=== PATIENT | female | born 1975 | race Caucasian/White ===

== ENCOUNTER 2017-11-01 08:09 | Inpatient (IN) ==
--- NOTE | 2017-11-01 09:56 | HP ---
Chief Complaint - Chief Complaint Date of Service: 11/01/17 Time of Service: 09:48 Chief Complaint: Periumbilical pain History of Present Illness: Pt was transferred from [place] to our ER due to a lack of surgical services. She had the onset of periumbilical abdominal pain 2 days ago associated with nausea and vomiting. A plain AXR showed some minor air fluid levels. A CT of the abdomen showed a partial small bowel obstruction with air and stool throughout the colon. Thickening of the terminal ileum was noted as suspicious for Crohns. An NG tube was placed. She was given 1 gm of IV flagyl. Her WBC is normal. Her serum glucose is high. - Patient's Past Medical History Patient History - Medical: Other Patient History - Cardiac/Respiratory: No pertinent hx Patient History - Cancer: No Hx of Cancer Patient History - Surgical Procedures: D & C, Tubal Ligation, Other - Laparoscopic ablation of endometriosis Patient History - Other: None LMP (females 10-50): 3-26 - Family History Family History:: no untoward family reactions to anesthesia - No family history of crohns. Her mother was borderline T2 DM due to weight. - Social History Living Situations: home Psych History: No pertinent hx Smoking Status: Never smoker Alcohol Use: occasionally Drug Use: none - Immunizations Immunizations Up to Date: Yes Hx Pneumococcal Vaccination: No History of Influenza Vaccine: No Review Of Systems (GEN) - Review of Systems Abdominal: Present: Other - See HPI Misc: All systems neg except as marked Immunizations: IMMUNIZATION HX Immunizations Up to Date Yes History of Influenza Vaccine No Hx Pneumococcal Vaccination No Allergies/Adverse Reactions: Allergies Allergy/AdvReac Type Severity Reaction Status Date / Time No Known Allergies Allergy Verified 11/01/17 08:24 Home Medications: HOME MEDICATIONS NK [No Home Medication] 11/01/17 [Last Taken Unknown] Exam - Exam Vital Signs: Vital Signs - Last Taken Temp 37.1 C 11/01/17 08:13 Pulse 84 11/01/17 08:55 Resp 15 11/01/17 08:55 BP 92/56 11/01/17 08:55 Pulse Ox 99 11/01/17 08:55 Constitutional: Present: Alert, Oriented x3, Cooperative, Well developed, Well nourished, No distress ENT Exam: Present: normal ENT inspection, other - NG right nares. AXR shows tip in the stomach. Eye Exam: bilateral eye: normal inspection Neck: Present: full range of motion, supple, trachea midline Respiratory: Present: normal breath sounds, no respiratory distress, no accessory muscle use Cardiovascular/Chest: Present: regular rate, rhythm, no murmur Abdomen: Present: Normal bowel sounds, soft, tender - mildly tender throughout without peritoneal signs Skin Exam: Present: normal color, warm/dry Neurologic: Present: no motor/sensory deficits Appearance: Present: appropriate appearance, appropriate insight Eye contact: Present: cooperative, good eye contact Thoughts: Present: normal thought pattern Assessment/Plan - Narrative Narrative: A: Mild PSBO. Suspicion of Crohns Disease. Hyperglycemia P: Gut rest. Hydration. Luminal suppression with Cipro/Flagyl. Check CRP. Hospitalist consult for hyperglycemia. - Assessment/Plan (1) Partial small bowel obstruction Problem: Acute
[2017-11-01] MEDS ORDERED: metroNIDAZOLE/SODIUM CHLORIDE 500 MG/100 ML BAG IV SCH (10:30)
[2017-11-01] MEDS: RINGER'S SOLUTION,LACTATED 1,000 ML IV PRN ×2 (10:45→18:47)
[2017-11-01] MEDS: CIPROFLOXACIN IN 5 % DEXTROSE 400 MG/200 ML BAG IV SCH ×2 (11:29→22:18)
[2017-11-01] MEDS ORDERED: BENZOCAINE/MENTHOL 16 EACH BOX MM PRN (11:31)
[2017-11-01] MEDS ORDERED: PHENOL 180 SPRAY BTL MM PRN (11:33)
[2017-11-01] MEDS: ONDANSETRON HCL/PF 2 MG/ML VIAL IV PRN ×2 (13:04→17:32)
[2017-11-01] MEDS: metroNIDAZOLE/SODIUM CHLORIDE 500 MG/100 ML BAG IV SCH ×2 (13:11→20:11)
[2017-11-01] MEDS: KETOROLAC TROMETHAMINE 30 MG/ML VIAL IV PRN ×2 (13:44→20:09)
--- NOTE | 2017-11-01 16:18 | CONS ---
- Reason for consultation (1) Hyperglycemia Date of Service: 11/01/17 HPI - General Date of Service: 11/01/17 Narrative: Luna is a 42 yo female with unremarkable PMH who presented to the [place] ER today and was diagnosed with small bowel obstruction. They were unequipped with a surgeon and thus transferred her to [facility] for treatment. She was given an NG tube on suction and is NPO for treatment of her small bowel obstruction. In the [place] ER she had a blood sugar of 180. She denies a history of diabetes, gestational diabetes, or a family history of diabetes. She reports she eats a healthy, well balanced diet. She does not overdue carbs. She takes no medications. She reports the last meal she ate was two days ago. In her usual health she is asymptomatic and specifically denies polydipsia, polyuria, and fatigue. Source: patient Exam Limitations: no limitations - History of Present Illness Allergies/Adverse Reactions: Allergies No Known Allergies Allergy (Verified 11/01/17 10:44) Home Medications: Home Medications Medication Instructions Recorded Last Taken NK [No Home Medication] 11/01/17 Unknown - Patient's Past Medical History Patient History - Medical: Other - Currently admitted with small bowel obstruction Patient History - Cardiac/Respiratory: No pertinent hx Patient History - Cancer: No Hx of Cancer Patient History - Surgical Procedures: D & C, Tubal Ligation, Other - Laparoscopic ablation of endometriosis Patient History - Other: None LMP (females 10-50): 3-26 - Family History Family History:: no untoward family reactions to anesthesia - No family history of crohns. Her mother was borderline T2 DM due to weight. - Family History Mother Family History - Cardiac/Respiratory: No pertinent hx Family History - Cancer: No pertinent family hx Father Family History - Medical: No pertinent hx Family History - Cardiac/Respiratory: Myocardial Infarction, Other Family History - Cancer: No pertinent family hx Sister Family History - Medical: No pertinent hx Family History - Cardiac/Respiratory: No pertinent hx Family History - Cancer: No pertinent family hx - Social History Living Situations: home Psych History: No pertinent hx Smoking Status: Never smoker Have you smoked in the past 12 months: No Alcohol Use: occasionally Drug Use: none - Immunizations Immunizations Up to Date: Yes Hx Pneumococcal Vaccination: No History of Influenza Vaccine: No Procedures D & C NEC (01/01/14) DESTRUCT PERITONEAL TISS (01/01/14) DIGITAL RECTAL EXAM (01/01/14) HYSTEROSCOPY (01/01/14) LAPAROSCOP LYSIS-ADHES OVA,FALLOP TUBE (01/01/14) LAPAROSCOPY (01/01/14) OTH LAPAROSCOP LOCAL EXCIS/DESTRUCT OVARY (01/01/14) REMOVE BOTH FALLOP TUBES (01/01/14) Medications - Medications Current Medications: Current Medications Lactated Ringer's (Lactated Ringers) 1,000 mls @ 125 mls/hr IV .Q8H PRN PRN Reason: HYDRATION Stop: 12/01/17 09:44 Last Admin: 11/01/17 10:45 Dose: 125 mls/hr Ciprofloxacin/Dextrose (Cipro) 400 mg in 200 mls @ 200 mls/hr IV Q12H ESTHER PRN Reason: Protocol Stop: 12/01/17 10:31 Last Infusion: 11/01/17 12:29 Dose: Infused Metronidazole (Flagyl) 500 mg in 100 mls @ 100 mls/hr IV Q8H ESTHER PRN Reason: Protocol Stop: 12/01/17 11:31 Last Infusion: 11/01/17 14:11 Dose: Infused Ketorolac Tromethamine (Toradol) 30 mg IV Q6H PRN PRN Reason: Moderate Pain (pain scale 4-6) Stop: 11/06/17 13:30 Last Admin: 11/01/17 13:44 Dose: 30 mg Ondansetron HCl (Zofran) 4 mg IV Q4H PRN PRN Reason: Nausea Stop: 12/01/17 12:57 Last Admin: 11/01/17 13:04 Dose: 4 mg Phenol/Menthol (Chloraseptic) 1 spray MM Q2H PRN PRN Reason: Sore Throat Stop: 12/01/17 11:34 Last Admin: 11/01/17 11:48 Dose: 1 spray Review of Systems - Review of Systems Generalized/Overall Review: Present: No Symptoms Reported EENTM: Present: No Symptoms Reported Respiratory: Present: No Symptoms Reported Cardiac: Present: No Symptoms Reported Abdominal: Present: Nausea, Abdominal Pain Genitourinary: Present: No Symptoms Reported Musculoskeletal: Present: No Symptoms Reported Neurological: Present: No Symptoms Reported Skin: Present: No Symptoms Reported Endocrine: Present: No Symptoms Reported Physical Examination - Exam Vital Signs: Vital Signs - Last Taken Temp 36.7 C 11/01/17 14:45 Pulse 72 11/01/17 14:45 Resp 18 11/01/17 14:45 BP 95/54 11/01/17 14:45 Pulse Ox 96 11/01/17 14:45 O2 Oxygen Delivery Method Room Air Constitutional: Present: Alert, Oriented x3, Cooperative ENT Exam: Present: hearing grossly normal Eye Exam: bilateral eye: normal inspection Respiratory: Present: lungs clear, normal breath sounds Cardiovascular/Chest: Present: regular rate, rhythm, no murmur Abdomen: Present: soft, nontender, nondistended, hypoactive Extremity: Present: normal inspection Skin Exam: Present: normal color, warm/dry, no cyanosis Appearance: Present: appropriate appearance, appropriate insight - Results and Findings: Lab/Microbiology results last 24 hrs: Abnormal/Pending Laboratory Last 24 HRS 11/01/17 10:50 C-Reactive Prot, Quant 3.9 H - Assessments/Findings (1) Hyperglycemia Diagnosis(s): Luna is a 42 yo female with hyperglycemia. I suspect this to be stress induced. She has no history of diabetes, gestational diabetes, or family history of diabetes. Blood glucose this AM was 180. Will plan to check a hemoglobin A1c at the next lab draw for further information. She is currently NPO. I do not feel she needs to go thought blood glucose monitoring by finger stick at this time. We will wait for the next lab draw tomorrow morning and check and fasting glucose and Hemoglobin A1c. Problem: Acute
[2017-11-02] MEDS: metroNIDAZOLE/SODIUM CHLORIDE 500 MG/100 ML BAG IV SCH ×3 (04:06→19:05)
[2017-11-02] MEDS: RINGER'S SOLUTION,LACTATED 1,000 ML IV PRN ×2 (04:12→17:45)
[2017-11-02] MEDS: KETOROLAC TROMETHAMINE 30 MG/ML VIAL IV PRN (04:13)
[2017-11-02] MEDS: ONDANSETRON HCL/PF 2 MG/ML VIAL IV PRN (04:13)
[2017-11-02 05:17] LABS: Hematocrit 33.4 % (37.0-47.0); Hemoglobin 10.8 gm/dL (12.5-16.0); Mean Cell Volume 86.3 fl (78-100); Mean Corpuscular Hemoglobin 27.9 pg (27-31); Mean Corpuscular Hgb Conc 32.3 g/dl (32-36); Mean Platelet Volume 10.1 fl (6.0-9.5); Neutrophil # 1.5 K/mm3 (1.3-6.0); Neutrophil % 42.5 % (42-75.0); Platelet Count 159 K/mm3 (150-450); Red Blood Count 3.87 M/mm3 (4.2-5.4); Red Cell Distribution Width 13.1 % (11.5-14.0); White Blood Count 3.6 K/mm3 (4.0-10.5)
[2017-11-02 05:27] LABS: Hemoglobin A1C 5.6 % (4.00-6.0)
[2017-11-02 05:34] LABS: Albumin * 2.9 gm/dl (3.4-5.0); Anion Gap 11.5 mmol/L (6.8-13.8); BUN/Creatinine Ratio 15.8 (9.0-21.6); Bilirubin, Total 0.5 mg/dL (0.0-1.1); Ca. Corrected For Albumin 8.7 mg/dL (8.4-10.2); Calcium * 8.1 mg/dL (7.9-10.9); Carbon Dioxide 25.8 mmol/L (24-32.6); Potassium 3.3 mmol/L (3.4-4.6); Total Protein 5.5 gm/dL (6.2-8.2)
[2017-11-02] MEDS: CIPROFLOXACIN IN 5 % DEXTROSE 400 MG/200 ML BAG IV SCH ×2 (10:19→22:18)
--- NOTE | 2017-11-02 12:57 | PN ---
Subjective - Date and Time Seen Date: 11/02/17 Time: 12:53 Subjective Narrative: Pain is improved today. Pos flatus. Neg BM. AXR shows more air moving into colon. Tolerating NG clamping so far. Objective - Vitals Vitals: Last Vital Signs Temp 37.6 C H 11/02/17 11:00 Pulse 58 L 11/02/17 11:00 Resp 18 11/02/17 11:00 BP 103/66 11/02/17 11:00 Pulse Ox 99 11/02/17 11:00 - Abnormal Lab Findings Abnormal Lab Findings: Abnormal Lab Results 11/02/17 11/02/17 Range/Units 05:00 05:00 WBC 3.6 L (4.0-10.5) K/mm3 RBC 3.87 L (4.2-5.4) M/mm3 Hgb 10.8 L (12.5-16.0) gm/dL Hct 33.4 L (37.0-47.0) % MPV 10.1 H (6.0-9.5) fl Immature Gran % (Auto) 0.00 L (0.001-0.429) % Monocytes % 12.6 H (0.0-9) % Eosinophils % 3.9 H (0.0-3.0) % Lymphocytes # 1.45 L (1.5-3.5) k/mm3 Sodium 143 H (132-142) mmol/L Plasma Sodium 143 H (130-142) mmol/L Potassium 3.3 L (3.4-4.6) mmol/L Chloride 109 H (97-106) mmol/L ALT 14 L (19-67) U/L Alkaline Phosphatase 33 L (50-170) U/L Total Protein 5.5 L (6.2-8.2) gm/dL Albumin 2.9 L (3.4-5.0) gm/dl - Exam Constitutional: Present: Alert, Oriented x3, Cooperative, No distress ENT Exam: Present: other - NG left nares. Abdomen: Present: other - Not as tender as yesterday. No peritoneal signs. Assessment/Plan Plan Narrative: A: Improving SB obstruction P: Pull NG if tolerating clamping and start clears. WBC is low. Uncertain as to that etiology. Will recheck tomorrow. Many thanks to Dr. Mark. - Problems/Diagnosis (1) Partial small bowel obstruction Problem: Acute
--- NOTE | 2017-11-02 17:21 | PN ---
Subjective - Date and Time Seen Date: 11/02/17 Time: 10:30 Subjective Narrative: Patient had hemoglobin A1c of 5.6 and fasting sugar this AM of 80. She reports improved symptoms, abdomen only painful with palpation. Objective - Vitals Vitals: Last Vital Signs Temp 37.0 C 11/02/17 14:37 Pulse 68 11/02/17 14:37 Resp 16 11/02/17 14:37 BP 92/50 11/02/17 14:37 Pulse Ox 100 11/02/17 14:37 - Abnormal Lab Findings Abnormal Lab Findings: Abnormal Lab Results 11/02/17 11/02/17 Range/Units 05:00 05:00 WBC 3.6 L (4.0-10.5) K/mm3 RBC 3.87 L (4.2-5.4) M/mm3 Hgb 10.8 L (12.5-16.0) gm/dL Hct 33.4 L (37.0-47.0) % MPV 10.1 H (6.0-9.5) fl Immature Gran % (Auto) 0.00 L (0.001-0.429) % Monocytes % 12.6 H (0.0-9) % Eosinophils % 3.9 H (0.0-3.0) % Lymphocytes # 1.45 L (1.5-3.5) k/mm3 Sodium 143 H (132-142) mmol/L Plasma Sodium 143 H (130-142) mmol/L Potassium 3.3 L (3.4-4.6) mmol/L Chloride 109 H (97-106) mmol/L ALT 14 L (19-67) U/L Alkaline Phosphatase 33 L (50-170) U/L Total Protein 5.5 L (6.2-8.2) gm/dL Albumin 2.9 L (3.4-5.0) gm/dl - Exam Constitutional: Present: Alert, Oriented x3, Cooperative ENT Exam: Present: hearing grossly normal Respiratory: Present: lungs clear, normal breath sounds Cardiovascular/Chest: Present: regular rate, rhythm, no murmur Abdomen: Present: soft, nontender, nondistended, hypoactive Skin Exam: Present: normal color, warm/dry, no cyanosis Assessment/Plan Plan Narrative: Fasting blood glucose and hemoglobin A1c shows no evidence of diabetes. Elevated blood sugar yesterday was likely stress induced. No further work-up needed. Please notify if the patient has any further medical needs. Medicine will otherwise sign off. - Problems/Diagnosis (1) Hyperglycemia Problem: Acute
[2017-11-03] MEDS: metroNIDAZOLE/SODIUM CHLORIDE 500 MG/100 ML BAG IV SCH (02:33)
[2017-11-03] MEDS: RINGER'S SOLUTION,LACTATED 1,000 ML IV PRN ×2 (04:49→12:54)
[2017-11-03] MEDS: metroNIDAZOLE 500 MG TABLET PO SCH ×3 (04:54→20:42)
[2017-11-03] MEDS: CIPROFLOXACIN HCL 500 MG TABLET PO SCH ×2 (04:54→16:18)
[2017-11-03 12:49] LABS: Hematocrit 32.1 % (37.0-47.0); Hemoglobin 10.5 gm/dL (12.5-16.0); Mean Cell Volume 86.8 fl (78-100); Mean Corpuscular Hemoglobin 28.4 pg (27-31); Mean Corpuscular Hgb Conc 32.7 g/dl (32-36); Mean Platelet Volume 9.9 fl (6.0-9.5); Neutrophil # 2.7 K/mm3 (1.3-6.0); Neutrophil % 59.3 % (42-75.0); Platelet Count 154 K/mm3 (150-450); Red Cell Distribution Width 12.9 % (11.5-14.0); White Blood Count 4.6 K/mm3 (4.0-10.5)
--- NOTE | 2017-11-03 13:47 | PN ---
Subjective - Date and Time Seen Date: 11/03/17 Time: 13:42 Subjective Narrative: FU suspected Crohns with PSBO Pain is improved WBC remains normal Passing flatus Neg BM AXR shows air in colon. One persistent SB air-fluid level Tolerating clear liquids Not much of an appetite Objective - Vitals Vitals: Last Vital Signs Temp 36.6 C 11/03/17 10:07 Pulse 56 L 11/03/17 10:07 Resp 18 11/03/17 10:07 BP 98/55 11/03/17 10:07 Pulse Ox 98 11/03/17 10:07 - Abnormal Lab Findings Abnormal Lab Findings: Abnormal Lab Results 11/03/17 Range/Units 12:42 RBC 3.70 L (4.2-5.4) M/mm3 Hgb 10.5 L (12.5-16.0) gm/dL Hct 32.1 L (37.0-47.0) % MPV 9.9 H (6.0-9.5) fl Lymphocytes # 1.45 L (1.5-3.5) k/mm3 - Exam Exam Narrative: Abdomen remains soft and nondistended. Mildly tender to palpation without peritoneal signs. Continues to improve. Assessment/Plan Plan Narrative: A: Moderate to Severe suspected Crohns. PSBO continues to improve P: Will advance to full liquids Will convert to PO antibiotics tomorrow and continue those for 2-4 weeks She has a name of Collection Manager at [facility] - Problems/Diagnosis (1) Partial small bowel obstruction Problem: Acute
[2017-11-04] MEDS: metroNIDAZOLE 500 MG TABLET PO SCH ×2 (05:19→13:01)
[2017-11-04] MEDS: CIPROFLOXACIN HCL 500 MG TABLET PO SCH (05:20)
--- NOTE | 2017-11-04 14:43 | PN ---
Subjective - Date and Time Seen Date: 11/04/17 Time: 14:31 Subjective Narrative: FU PSBO from suspected crohns Is tolerating PO intake. Notes some bloatedness. Had soft mechanical diet for lunch. No pain. Objective Objective Narrative: Abdomen is slightly distended. Soft. Nontender. - Vitals Vitals: Last Vital Signs Temp 37.4 C 11/04/17 10:14 Pulse 68 11/04/17 10:14 Resp 16 11/04/17 10:14 BP 110/63 11/04/17 10:14 Pulse Ox 96 11/04/17 10:14 Assessment/Plan Plan Narrative: A: Ongoing resolution of PSBO P: Will discharge. Needs short follow-up at [facility] gastroenterology dept. She is to contact my office to assist in getting that appointment. Contact information given. She is to follow an all-cooked diet. Aspects of this diet were reviewed with Pt and . We will start her on prednisone daily at 40mg. Have witheld that during this admission to avoid masking complications. Will continue cipro and flagyl for at least another 2 weeks for luminal suppression. Side effects were reviewed of all 3 medications. Activity is as tolerated. May return to work as tolerated. - Problems/Diagnosis (1) Partial small bowel obstruction Problem: Acute (2) Crohns disease of small intestine Problem: Suspected Qualifiers: Digestive disease complication type: with intestinal obstruction Qualified Code(s): K50.012 - Crohn's disease of small intestine with intestinal obstruction
--- NOTE | 2017-11-04 14:51 | DS ---
(1) Partial small bowel obstruction Problem: Resolved (2) Crohns disease of small intestine Problem: Suspected Qualifiers: Digestive disease complication type: with intestinal obstruction Qualified Code(s): K50.012 - Crohn's disease of small intestine with intestinal obstruction (3) Hyperglycemia Problem: Resolved Description of Stay: Pt was transferred from [facility] due to lack of surgical services Patient was admitted for PSBO with findings suspicious for crohns by CT. She was at gut rest with an NG tube. She was shortly passing flatus. The NG was removed and diet was cautiously advanced to mechanical soft which was tolerated well. Her abdominal pain resolved but is still complaining of some mild bloating. She is discharged in improved condition and successful resolution of her PSBO by conservative means. She needs short follow-up at [facility] gastroenterology dept. She is to contact my office to assist in getting that appointment. Contact information given. She is to follow an all-cooked diet. Aspects of this diet were reviewed with Pt and . We will start her on prednisone daily at 40mg. Have withheld that during this admission to avoid masking complications. Will continue cipro and flagyl for at least another 2 weeks for luminal suppression. Side effects were reviewed of all 3 medications. Activity is as tolerated. May return to work as tolerated. Follow-up with me will be PRN. Procedures Performed: none Discharge Location: Home Disposition: Home self-care Condition: Good Discharge Activity: Activity as tolerated Discharge Diet: Other - All-cooked Referrals: Kvng Khan ARNP [Primary Care Provider] - Complete Home Medications List: Complete Home Medication List: NK [No Home Medication] 11/01/17
[2017-11-04 15:26] VITALS: BP 100/62
== END 2017-11-04 15:43 | disposition home or self-care (01) | DRG 386 ==
LOC: ER 08:09 → MS 09:47
PROVIDERS: ADMIT Specialist; ATTEND Specialist
DX: R73.9 Hyperglycemia, unspecified; K50.012 Crohn's disease of small intestine with intestinal obstruction
CPT/HCPCS: 36415; 74019; 74020; 80053; 83036; 85025; 86140; J2405